=== PATIENT | male | born 1955 | race Caucasian/White ===

== ENCOUNTER 2021-02-12 15:41 | Inpatient (IN) | payer OTHER, SELFPAY ==
[2021-02-12] VITALS (9 sets, daily range): BP systolic 112–158; BP diastolic 56–94; PULSE 55–65; RESP 16–28; TEMP 36.6–36.7; O2SAT 96–97; BMI 44.8; BMI 44.0
--- NOTE | 2021-02-12 15:46 | NURSING ---
NO OLD EKGS
--- NOTE | 2021-02-12 16:06 | EKG12_ITS ---
Test Reason : CP Blood Pressure : / mmHG Vent. Rate : 059 BPM Atrial Rate : 059 BPM P-R Int : 206 ms QRS Dur : 134 ms QT Int : 404 ms P-R-T Axes : 027 -51 020 degrees QTc Int : 399 ms Sinus bradycardia Right bundle branch block Left anterior fascicular block Bifascicular block Abnormal ECG Confirmed by LUCY BOWMAN, SUSY ([id number]), purchase request editor LUDWIN TOUSSAINT ([id number]) on 02/14/2021 1:25:42 PM Referred By: CARLOS Confirmed By:SUSY AYALA MD
--- NOTE | 2021-02-12 16:07 | EDS_ITS ---
HPI <Dr. Matthias Harrison DO - Last Filed: 02/12/21 17:31> History of Present Illness Detail of Chief Complaint: Chest pain that started about 3 PM Informant: patient Onset/Context/Timing Current Severity: 07/03 Narrative Narrative: Patient presents to the emergency department with left-sided chest pain that started around 3 PM. Patient states that he was sleeping and woke him up from sleep. He felt somewhat sweaty with it. He denies any shortness of breath. He denies any trauma to his chest. He rates his pain a 4 out of 10. He describes it as a squeezing and sharp pain at the same time. Does not seem to be pleuritic. Denies recent travel or surgery. He has no heart history. He had a heart catheterization 10 years ago that was unremarkable. No family history of heart disease. Patient seems to kind of radiate into his left shoulder. Patient has history of hypertension and COPD. Prior Similar Symptoms: Yes PFSH <Dr. Matthias Harrison DO - Last Filed: 02/12/21 17:31> PFSH Medical History (Updated 02/22/21 @ 00:00 by Guerda Barrios) COPD (chronic obstructive pulmonary disease) Depression Former smoker HTN (hypertension) Sleep apnea Home Medications ipratropium-albuterol ml 02/12/21 [History Last Taken Unknown] aspirin 81 mg PO BREAKFAST #30 tab 02/14/21 [Rx Last Taken Unknown] Allergy/AdvReac Type Severity Reaction Status Date / Time Penicillins Allergy Hives Verified 02/12/21 15:44 tetracycline Allergy Hives Verified 02/12/21 15:44 Family History (Updated 02/12/21 @ 18:[address] Allan Damon DO) Other Heart disease Surgical History (Updated 02/12/21 @ 19:59 by Alise Mckee) H/O cardiac catheterization History of appendectomy History of cholecystectomy Hx of tonsillectomy Social History Smoking Status: Former smoker ROS <Dr. Matthias Harrison DO - Last Filed: 02/12/21 17:31> ROS ED Review of Systems ROS Unobtainable: other Constitutional Constitutional ED: Reports lethargy; Denies chills, fever(s), sweats or weight loss Eyes Eyes: Denies blurry vision, change in vision or diplopia ENT ENT ED: Denies rhinorrhea or sore throat Cardiovascular Cardiovascular: Reports chest pain and racing heartbeat; Denies orthopnea Respiratory/Chest Respiratory/Chest: Reports dyspnea and dyspnea on exertion; Denies cough, orthopnea or sputum Gastrointestinal Gastrointestinal: Denies abdominal pain, diarrhea, nausea or vomiting Genitourinary Genitourinary ED: Denies dysuria, hematuria or urinary frequency Musculoskeletal Musculoskeletal: Denies arthralgias, back pain, myalgias or neck pain Integumentary Denies abscess, Abrasions or rash Neurologic Neurologic: Denies headache(s) or weakness Psychiatric Psychiatric: Denies anxiety, depression or suicidal thoughts Endocrine Endocrinology: Denies polydipsia, polyphagia or polyuria Hematologic/Lymphatic Hematologic/Lymphatic: Denies easy bleeding, easy bruising or lymphadenopathy Allergic/Immunologic Allergic/Immunologic ED: Denies mouth swelling, tongue swelling or urticaria EXAM <Dr. Matthias Harrison, DO - Last Filed: 02/12/21 17:31> Physical Exam Const Vital Signs: 02/12/21 15:45 02/12/21 16:14 02/12/21 16:28 Temperature 98.0 F Temperature Source Oral Pulse Rate 57 L 60 Respiratory Rate 18 Blood Pressure 131/66 H 133/62 H Blood Pressure Mean 87 Pulse Ox 96 Oxygen Delivery Method Room Air Room Air 02/12/21 16:37 02/12/21 16:59 Temperature Temperature Source Pulse Rate 62 56 L Respiratory Rate 16 Blood Pressure 127/63 H 123/67 H Blood Pressure Mean 85 Pulse Ox 97 Oxygen Delivery Method Room Air Positive well nourished and well developed General Appearance ED: well developed and NAD HEENT Reports TM's clear and moist mucous membranes normocephalic and atraumatic; Negative for trauma or tenderness Tympanic Membrane ED: Yes TM's clear Eyes PERRL and EOMs intact bilaterally General Eye ED: Negative for pale conjunctiva or scleral icterus Neck no lymphadenopathy, supple and no JVD General: Negative for tenderness Chest Wall palpation of chest normal Chest Narrative: Patient has tenderness over the left lower ribs but seems to reproduce his pain. Chest: Negative for tenderness Resp normal respiratory effort and clear to auscultation bilaterally Effort and Inspection: Negative for respiratory distress or pain with movement Auscultation: Negative for rhonchi, wheezes or diminished lung sounds Cardio regular rate, regular rhythm, S1 normal heart sound, S2 normal heart sound and no murmurs Peripheral Pulses: pulses 2+ throughout GI normal to inspection, nondistended, normoactive bowel sounds, soft to palpation, non-tender, non-distended and no masses Back/Spine no CVA tenderness and no thoracic nor lumbar tenderness Extremity normal to inspection General Extremety ED: Negative for edema General Extremity: Negative for edema Neuro oriented x3, CN's II-XII intact bilaterally, no sensory deficits noted and gait normal Sensorium / Orientation: awake, alert, oriented to person, oriented to place and oriented to time Motor Exam: strength 5/5 throughout and strength abnormal Psych mental status grossly normal Skin no rashes or lesions noted and no wounds <Jo Ann Goel NP-C - Last Filed: 02/25/21 13:58> Physical Exam Const Vital Signs: 02/12/21 15:45 02/12/21 16:14 02/12/21 16:28 Temperature 98.0 F Temperature Source Oral Pulse Rate 57 L 60 Respiratory Rate 18 Blood Pressure 131/66 H 133/62 H Blood Pressure Mean 87 Pulse Ox 96 Oxygen Delivery Method Room Air Room Air 02/12/21 16:37 02/12/21 16:59 Temperature Temperature Source Pulse Rate 62 56 L Respiratory Rate 16 Blood Pressure 127/63 H 123/67 H Blood Pressure Mean 85 Pulse Ox 97 Oxygen Delivery Method Room Air <Dr. Matthias Harrison DO - Last Filed: 02/12/21 17:31> Heart Score History: Moderately Suspicious ECG: Nonspecific Repolarization Age: >/= 65 years Risk Factors: 1 or 2 Risk Factors Troponin: </= Normal Limit Score: 5 MDM <Dr. Matthias Harrison, - Last Filed: 02/12/21 17:31> [facility] Narrative Medical decision making narrative: IV line established on arrival. Patient received aspirin. He received 2 sublingual nitros that resolved his pain. Nitropaste placed to the anterior chest wall. Patient has a heart score of 5. Will recommend admission for further work-up and evaluation of his chest pain. Patient noted to have a leukocytosis. He tells me that he is currently on prednisone for history of COPD. No other infectious etiology noted. Lab Data Attestation: I reviewed the patient's lab results. Labs: Laboratory Results - last 24 hr 02/12/21 02/12/21 15:45 15:45 WBC 19.7 H RBC 5.13 Hgb 14.1 Hct 45.0 MCV 87.7 MCH 27.5 MCHC 31.3 L RDW Std Deviation 49.1 H RDW Coeff of Bong 15.3 H Plt Count 258 MPV 11.3 Immature Gran % (Auto) 1.500 H Neut % (Auto) 86.2 H Lymph % (Auto) 5.8 L [place] % (Auto) 6.0 Eos % (Auto) 0.3 Baso % (Auto) 0.2 Absolute Neuts (auto) 17.0 H Absolute Lymphs (auto) 1.14 Nucleated RBC % 0 Sodium 140 Potassium 4.8 Chloride 108 H Carbon Dioxide 28.0 Anion Gap 4 L BUN 22 H Creatinine 1.17 Estim Creat Clear Calc 70.19 Est GFR (MDRD) Af Amer 80 Est GFR (MDRD) Non-Af 66 BUN/Creatinine Ratio 18.8 Glucose 149 H Calcium 9.7 Troponin I High Sens 18 Radiography Chest X-Ray - ED: 1 View Diagnostic Testing: Clinical Impression(s) from Imaging Studies Chest X-Ray 02/12/21 16:41 IMPRESSION: Nonacute portable x-ray examination of the chest. Electronically Signed: David Guerrero MD (Brooks) at 17:11 EST , Service support , Echocardiogram 02/13/21 05:55 Interpretation Summary Normal LV size. Left ventricular systolic function is normal. The estimated ejection fraction is 60 %. Stage 1 diastolic dysfunction. Contrast injection was performed. Ordering Physician: Allan Damon Referring Physician: [facility] Performed By: Mar Terry, RICH, RVT 1 view chest x-ray obtained interpreted by myself as no acute disease process. EKG Initial EKG: Attestation: I personally reviewed and interpreted this EKG as follows: Comments: Sinus rhythm with a ventricular rate of 59 bpm with a right bundle branch block and left anterior fascicular block <Jo Ann Goel MARINE MACHINIST-C - Last Filed: 02/25/21 13:58> MDM Lab Data Labs: Laboratory Results - last 24 hr 02/12/21 02/12/21 15:45 15:45 WBC 19.7 H RBC 5.13 Hgb 14.1 Hct 45.0 MCV 87.7 MCH 27.5 MCHC 31.3 L RDW Std Deviation 49.1 H RDW Coeff of Bong 15.3 H Plt Count 258 MPV 11.3 Immature Gran % (Auto) 1.500 H Neut % (Auto) 86.2 H Lymph % (Auto) 5.8 L Humphreys % (Auto) 6.0 Eos % (Auto) 0.3 Baso % (Auto) 0.2 Absolute Neuts (auto) 17.0 H Absolute Lymphs (auto) 1.14 Nucleated RBC % 0 Sodium 140 Potassium 4.8 Chloride 108 H Carbon Dioxide 28.0 Anion Gap 4 L BUN 22 H Creatinine 1.17 Estim Creat Clear Calc 70.19 Est GFR (MDRD) Af Amer 80 Est GFR (MDRD) Non-Af 66 BUN/Creatinine Ratio 18.8 Glucose 149 H Calcium 9.7 Troponin I High Sens 18 Radiography Diagnostic Testing: Clinical Impression(s) from Imaging Studies Chest X-Ray 02/12/21 16:41 IMPRESSION: Nonacute portable x-ray examination of the chest. Electronically Signed: David Guerrero MD (Brooks) at 17:11 EST , Service support , Echocardiogram 02/13/21 05:55 Interpretation Summary Normal LV size. Left ventricular systolic function is normal. The estimated ejection fraction is 60 %. Stage 1 diastolic dysfunction. Contrast injection was performed. Ordering Physician: Allan Damon Referring Physician: [facility] Performed By: Mar Terry RDCS, RVT Discharge Plan Dx/Rx/DC Orders Clinical Impression: Chest pain Disposition Disposition: Acute Care Hospital [facility] Discharge Date/Time: 02/12/21 19:09 <DAVID Benjamin - Last Filed: 02/25/21 13:58> Addendum Details:: Opened in error, did not partake in any care while patient was in the ED.
[2021-02-12 16:20] LABS: Absolute Lymphocyte Count 1.14 X10^3/uL (0.83-4.51); Basophil# 0.04 X10^3/uL; Basophil% 0.2 % (0-1); Eosinophil# 0.05 X10^3/uL; Eosinophils% 0.3 % (0-5); Hemoglobin 14.1 g/dL (13.0-16.5); Lymphocyte # 1.14 X10^3/ul (0.83-4.51); Lymphocyte % 5.8 % (19-41); Mean Corp Hgb Conc 31.3 g/dL (32-36); Mean Corpuscular Hgb 27.5 pg (27.0-32.0); Mean Corpuscular Volume 87.7 fL (80-94); Mean Platelet Vol. 11.3 fl (6.2-12.0); Monocyte# 1.17 X10^3/uL; NRBC Flagged by Analyzer 0 % (0-5); Neutrophil # 16.96 X10^3/uL (2.7-7.7); Neutrophil % 86.2 % (47-70); Platelet Count 258 K/mm3 (150-450); RBC Distribution Width CV 15.3 % (11.6-14.6); RBC Distribution Width SD 49.1 fl (35.1-43.9); Red Blood Count 5.13 M/mm3 (4.6-6.2); White Blood Count 19.7 K/mm3 (4.4-11.0)
[2021-02-12] MEDS: Aspirin 81 MG TAB.CHEW 324 MG PO (16:25)
[2021-02-12] MEDS: Nitroglycerin SL (ED/IMG/CATH) 0.4 MG TABLET SL ×2 (16:28→16:37)
[2021-02-12] MEDS: 0.9% Normal Saline 1,000 ML 150 ML IV (16:28)
[2021-02-12 16:34] LABS: Anion Gap 4 (5-15); BUN 22 mg/dL (7-18); BUN/Creat Ratio 18.8 RATIO (10-20); Calcium,Total 9.7 mg/dL (8.5-10.1); Chloride 108 mmol/L (98-107); Creatinine, Serum 1.17 mg/dL (0.70-1.30); EST Glomerular Filtration Rate 66 mL/min (>60); Est Glom Filt Rate - Afr Amer 80 mL/min (>60); Estimated Creatinine Clearance 70.19 ml/min; Glucose 149 mg/dL (74-106); Potassium 4.8 mmol/L (3.5-5.1); Sodium Level 140 mmol/L (136-145); Troponin-I HS 18 pg/mL (3.0-78.0)
--- NOTE | 2021-02-12 16:41 | RAD_ITS ---
STUDY: X-RAY CHEST REASON FOR EXAM: Male, 65 years old. chest pain TECHNIQUE: AP COMPARISON: None. FINDINGS: EKG leads project over the chest. The lungs are clear and expanded. There is no demonstrated pleural abnormality. Normal size heart. Normal mediastinum and adrianna. Normal visualized pulmonary arteries. Normal visualized aortic arch and descending thoracic aorta. Normal visualized thoracic spine. Normal visualized ribs, clavicles, and shoulders. There is no demonstrated abnormality of the visualized soft tissue structures of the upper abdomen. RAD/Chest 1 View (Portable) IMPRESSION: Nonacute portable x-ray examination of the chest. Electronically Signed: David Guerrero MD (Brooks) at 17:11 EST , Service support ,
[2021-02-12] MEDS: Nitroglycerin Oint 1 INCH PACKET TD (17:32)
--- NOTE | 2021-02-12 17:51 | NURSING ---
ATTEMPTING TO CALL [facility]. PUT ON HOLD
--- NOTE | 2021-02-12 17:56 | NURSING ---
PHONE RANG AT [facility] UNTIL IT QUIT AND I GOT HANGED UP ON
--- NOTE | 2021-02-12 18:11 | NURSING ---
PCU OBS JENNIFER TOLEDO
--- NOTE | 2021-02-12 18:18 | PCM.HP.STD ---
HPI - General General Date of Admission: 02/12/21 Date of Service: 02/12/21 Chief Complaint: chest pain HPI Narrative MAY ALMAGUER, is a 65 M who presents presents with chest pain. Symptoms began at 1500 patient had left-sided chest pain went up into his left shoulder. Associated with diaphoresis and nausea. Has had this chest pain off and on and was scheduled to have a stress test done earlier but was not performed. Patient did receive nitroglycerin which alleviated his chest pain. He feels fine at this time. [facility] Medical History COPD (chronic obstructive pulmonary disease) HTN (hypertension) Home Medications Unobtainable 02/12/21 [History Last Taken Unknown] Allergy/AdvReac Type Severity Reaction Status Date / Time Penicillins Allergy Hives Verified 02/12/21 15:44 tetracycline Allergy Hives Verified 02/12/21 15:44 Family History (Updated 02/12/21 @ 18:[address] Allan Damon DO) Other Heart disease Surgical History H/O cardiac catheterization History of appendectomy Hx of tonsillectomy Social History Smoking Status: Former smoker ROS ROS Narrative Chronic LE edema. All review of systems were negative except as mentioned above in the history of present illness and the other review of systems. Vital Signs Vital Signs Vital Signs: 02/12/21 15:45 02/12/21 16:14 02/12/21 16:28 Temperature 36.7 C Temperature Source Oral Pulse Rate 57 L 60 Respiratory Rate 18 Blood Pressure 131/66 H 133/62 H Blood Pressure Mean 87 Pulse Ox 96 Oxygen Delivery Method Room Air Room Air 02/12/21 16:37 02/12/21 16:59 02/12/21 17:32 Temperature Temperature Source Pulse Rate 62 56 L 55 L Respiratory Rate 16 Blood Pressure 127/63 H 123/67 H 120/56 L Blood Pressure Mean 85 Pulse Ox 97 Oxygen Delivery Method Room Air 02/12/21 18:07 Temperature 36.6 C Temperature Source Temporal Pulse Rate 59 L Respiratory Rate 18 Blood Pressure 112/94 H Blood Pressure Mean 100 Pulse Ox 96 Oxygen Delivery Method Room Air Weight Weight: 154 kg Body Mass Index (BMI) 44.8 Physical Exam Const alert General Appearance: cooperative HEENT normocephalic Resp normal respiratory effort, no retractions, no use of accessory muscles and clear to auscultation bilaterally Cardio regular rate, regular rhythm, S1 normal heart sound and S2 normal heart sound GI normal to inspection, nondistended, normoactive bowel sounds, soft to palpation, non-tender and non-distended Extremity normal to inspection Results Lab / Micro Data Attestation: I reviewed the patient's lab results. Result Diagrams: 02/12/21 15:45 02/12/21 15:45 Labs: Laboratory Results - last 24 hr 02/12/21 15:45: WBC 19.7 H, RBC 5.13, Hgb 14.1, Hct 45.0, MCV 87.7, MCH 27.5, MCHC 31.3 L, RDW Std Deviation 49.1 H, RDW Coeff of Bong 15.3 H, Plt Count 258, MPV 11.3, Immature Gran % (Auto) 1.500 H, Neut % (Auto) 86.2 H, Lymph % (Auto) 5.8 L, [place] % (Auto) 6.0, Eos % (Auto) 0.3, Baso % (Auto) 0.2, Absolute Neuts (auto) 17.0 H, Absolute Lymphs (auto) 1.14, Nucleated RBC % 0 02/12/21 15:45: Sodium 140, Potassium 4.8, Chloride 108 H, Carbon Dioxide 28.0, Anion Gap 4 L, BUN 22 H, Creatinine 1.17, Estim Creat Clear Calc 70.19, Est GFR (MDRD) Af Amer 80, Est GFR (MDRD) Non-Af 66, BUN/Creatinine Ratio 18.8, Glucose 149 H, Calcium 9.7, Troponin I High Sens 18 EKG Initial EKG: Attestation: I personally reviewed and interpreted this EKG as follows: Prior EKG tracings: available for review EKG Rhythm Intrepretation: Sinus Rhythm (RBBB. no acute change. ) Radiology Impression Chest X-Ray 02/12/21 16:41 IMPRESSION: Nonacute portable x-ray examination of the chest. Electronically Signed: David Guerrero MD (Brooks) at 17:11 EST , Service support , Assessment & Plan Assessment/Plan (1) Unstable angina: PLAN: 1. Unstable angina Heart score of 5 Received ASA and NTG in ED cycle troponins check lipid panel chemical stress test 02/14 2. COPD stable PRN albuterol 3. LE edema may be due to pulmonary HTN check echo 4. VTE prophylaxis: not indicated given obs status. Charges/Coding Visit Charges OBSV E&M: 25463 Initial observation care L2
--- NOTE | 2021-02-12 18:23 | NURSING ---
CALLED [facility], TALKED TO LUIS. HE WAS GOING TO TAKE [facility] ER PHONE NUMBER TO HER AND HAVE HER CALL ER BACK.
--- NOTE | 2021-02-12 18:54 | NURSING ---
[facility] CALL[facility] AND I TALKED TO PATRICK AND GAVE HER ALL THE PATIENTS INFO. SHE INFORMED ME THEY ARE TIGHT ON BEDS BUT WILL ASSIGN A COORDINATOR TO THE PATIENT. SHE SAID WE MAY ADMIT IF THAT IS WHAT'S IN BEST INTEREST FOR THE PATIENT.
--- NOTE | 2021-02-12 19:14 | EKG12_ITS ---
Test Reason : DYSRHYTHMIA Blood Pressure : / mmHG Vent. Rate : 052 BPM Atrial Rate : 058 BPM P-R Int : 000 ms QRS Dur : 142 ms QT Int : 420 ms P-R-T Axes : 014 -50 007 degrees QTc Int : 390 ms Sinus bradycardia with 2nd degree A-V block (Mobitz I) Right bundle branch block Left anterior fascicular block Bifascicular block Abnormal ECG When compared with ECG of 12-FEB-2021 19:41, MANUAL COMPARISON REQUIRED, DATA IS UNCONFIRMED Confirmed by LUCY BOWMAN, SUSY ([id number]), fan mail editor LUDWIN TOUSSAINT ([id number]) on 02/15/2021 1:54:21 PM Referred By: TRE Confirmed By:SUSY AYALA MD
--- NOTE | 2021-02-12 19:53 | NURSING ---
RN attempted to call patient's [facility] at [phone] to get home medication list but no on answered the phone. Will attempt again.
--- NOTE | 2021-02-12 19:58 | PCS.PANDOC ---
PANDEMIC DOCUMENTATION INITIATED: Date: 11/08/2020 Time: 190
[2021-02-12 20:04] LABS: Troponin-I HS 14 pg/mL (3.0-78.0)
--- NOTE | 2021-02-12 20:12 | NURSING ---
RN ATTEMPTED TO CALL ALF FOR MEDICATIONS PATIENT IS TAKING, NO ANSWER
[2021-02-12 22:09] LABS: Troponin-I HS 14 pg/mL (3.0-78.0)
[2021-02-12] MEDS: Albuterol 2.5 MG/3 ML VIAL.NEB. INHALATION (22:48)
[2021-02-13] VITALS (10 sets, daily range): BP systolic 143–172; BP diastolic 88–98; PULSE 60–88; RESP 16–20; TEMP 36.2–36.7; O2SAT 92–96
[2021-02-13] MEDS: Albuterol 2.5 MG/3 ML VIAL.NEB. INHALATION ×3 (03:21→21:46)
--- NOTE | 2021-02-13 04:30 | EKG12_ITS ---
Test Reason : CP ADMIT Blood Pressure : / mmHG Vent. Rate : 057 BPM Atrial Rate : 057 BPM P-R Int : 222 ms QRS Dur : 126 ms QT Int : 398 ms P-R-T Axes : 025 -49 003 degrees QTc Int : 387 ms Sinus bradycardia with 1st degree A-V block Right bundle branch block Left anterior fascicular block Bifascicular block Abnormal ECG Confirmed by LUCY BOWMAN, SUSY ([id number]), order editor LUDWIN TOUSSAINT ([id number]) on 02/15/2021 1:55:37 PM Referred By: TRE Confirmed By:SUSY AYALA MD
--- NOTE | 2021-02-13 05:55 | ECHOCS_ITS ---
Reason For Study: Edema Procedure This was a 2D Doppler, Color Flow transthoracic echocardiogram. Contrast injection was performed. The study was technically difficult. Exam performed in department. Left Ventricle Normal LV size. Left ventricular systolic function is normal. The estimated ejection fraction is 60 %. Stage 1 diastolic dysfunction. Right Ventricle Normal RV size. Normal systolic function. Atria Normal left atrium. Normal right atrium. Mitral Valve Normal mitral valve. Tricuspid Valve Normal tricuspid valve. Aortic Valve The aortic valve is not well visualized. Mild focal aortic valve calcification. Pulmonic Valve Normal pulmonic valve. Great Vessels Normal aortic root. The pulmonary artery is normal size. Normal inferior vena cava. Pericardium/Pleural No pericardial effusion. Medication Diluted definity 2ml given slow IV push to enhance endocardial definition. MMode/2D Measurements & Calculations LVIDd: 5.6 cm IVSd: 1.5 cm Ao root diam: 3.6 cm LVIDs: 3.0 cm LVPWd: 1.5 cm RVDd: 4.2 cm FS: 46.8 % LAV(MOD-bp): 43.5 ml LVAd ap4: 19.9 cm2 SV(MOD-sp4): 34.3 ml LAV(MOD-bp) Indexed: 16.3 ml/m2 LVLd ap4: 6.4 cm LAV(MOD-sp2): 22.3 ml EDV(MOD-sp4): 50.3 ml LAV(MOD-sp4): 62.0 ml EDV(sp4-el): 52.8 ml LVAs ap4: 10.0 cm2 LVLs ap4: 5.2 cm ESV(MOD-sp4): 16.0 ml ESV(sp4-el): 16.4 ml EF(MOD-sp4): 68.2 % EF(sp4-el): 68.9 % SV(sp4-el): 36.3 ml LA A4 area: 21.7 cm2 LA dimension(2D): 4.1 cm RA A4 area: 14.9 cm2 Doppler Measurements & Calculations MV E max juancho: 78.4 cm/sec Lat Peak E' Juancho: 5.6 cm/sec Med Peak E' Juancho: 5.8 cm/sec MV A max juancho: 103.5 cm/sec E/E' lat: 14.0 E/E' med: 13.5 MV E/A: 0.76 MV V2 max: 115.6 cm/sec Ao V2 max: 226.2 cm/sec LV V1 max: 131.5 cm/sec MV max P.3 mmHg Ao max P.5 mmHg LV V1 max P.9 mmHg MV V2 mean: 75.2 cm/sec Ao V2 mean: 145.8 cm/sec LV V1 mean P.9 mmHg MV mean P.4 mmHg Ao mean P.9 mmHg LV V1 mean: 93.2 cm/sec MV V2 VTI: 24.8 cm Ao V2 VTI: 30.9 cm LV V1 VTI: 18.8 cm PA V2 max: 110.0 cm/sec ECHO/Echo Complete W/ Contrast Interpretation Summary Normal LV size. Left ventricular systolic function is normal. The estimated ejection fraction is 60 %. Stage 1 diastolic dysfunction. Contrast injection was performed. Ordering Physician: Allan Damon Referring Physician: [facility] Performed By: Mar Terry, RICH, RVT
[2021-02-13 06:52] LABS: Absolute Lymphocyte Count 2.52 X10^3/uL (0.83-4.51); Absolute Neutrophil Count 12.5 X10^3/uL (2.0-7.7); Basophil# 0.06 X10^3/uL; Basophil% 0.4 % (0-1); Eosinophil# 0.19 X10^3/uL; Eosinophils% 1.1 % (0-5); Hematocrit 42.9 % (40-54); Hemoglobin 13.3 g/dL (13.0-16.5); Lymphocyte # 2.52 X10^3/ul (0.83-4.51); Lymphocyte % 15.2 % (19-41); Mean Corpuscular Hgb 27.4 pg (27.0-32.0); Mean Corpuscular Volume 88.5 fL (80-94); Mean Platelet Vol. 10.8 fl (6.2-12.0); Monocyte# 1.11 X10^3/uL; Monocyte% 6.7 % (0-10); NRBC Flagged by Analyzer 0 % (0-5); Neutrophil # 12.45 X10^3/uL (2.7-7.7); Neutrophil % 74.9 % (47-70); Platelet Count 216 K/mm3 (150-450); RBC Distribution Width CV 15.3 % (11.6-14.6); RBC Distribution Width SD 49.6 fl (35.1-43.9); Red Blood Count 4.85 M/mm3 (4.6-6.2); White Blood Count 16.6 K/mm3 (4.4-11.0)
[2021-02-13 07:18] LABS: Hemoglobin A1c 6.2 % (3.8-5.6)
[2021-02-13 07:24] LABS: Cholesterol 126 mg/dL (200); High Density Lipoprotein 65 mg/dL; Triglycerides 101 mg/dL; Very Low Density Lipoprotein 20 mg/dL (5-40)
[2021-02-13] MEDS: Aspirin E.C. 81 MG Tablet PO (08:32)
[2021-02-13 11:20] LABS: Bedside Glucose 105 mg/dL (70-110)
--- NOTE | 2021-02-13 14:25 | PN.HOSP_ITS ---
Subjective Subjective No further chest pain. Objective Data Objective Data Vital Signs: Vital Signs Temp Pulse Resp BP Pulse Ox 36.7 C 77 18 172/93 H 92 02/13/21 14:23 02/13/21 14:23 02/13/21 14:23 02/13/21 14:23 02/13/21 14:23 Oxygen Delivery Method Room Air Weight: 151.4 kg Body Mass Index (BMI) 44.0 Intake & Output: Intake and Output for Last 24 Hours 02/11/21 02/12/21 02/13/21 23:59 23:59 23:59 Intake Total 725 / 725 240 / 240 Output Total 400 / 400 550 / 550 Balance 325 / 325 -310 / -310 Lab / Micro Data Result Diagrams: 02/13/21 06:28 02/12/21 15:45 Labs: Laboratory Results - last 24 hr 02/12/21 15:45: WBC 19.7 H, RBC 5.13, Hgb 14.1, Hct 45.0, MCV 87.7, MCH 27.5, MCHC 31.3 L, RDW Std Deviation 49.1 H, RDW Coeff of Bong 15.3 H, Plt Count 258, MPV 11.3, Immature Gran % (Auto) 1.500 H, Neut % (Auto) 86.2 H, Lymph % (Auto) 5.8 L, [place] % (Auto) 6.0, Eos % (Auto) 0.3, Baso % (Auto) 0.2, Absolute Neuts (auto) 17.0 H, Absolute Lymphs (auto) 1.14, Nucleated RBC % 0 02/12/21 15:45: Sodium 140, Potassium 4.8, Chloride 108 H, Carbon Dioxide 28.0, Anion Gap 4 L, BUN 22 H, Creatinine 1.17, Estim Creat Clear Calc 70.19, Est GFR (MDRD) Af Amer 80, Est GFR (MDRD) Non-Af 66, BUN/Creatinine Ratio 18.8, Glucose 149 H, Calcium 9.7, Troponin I High Sens 18 02/12/21 19:30: Troponin I High Sens 14 02/12/21 21:25: Troponin I High Sens 14 02/13/21 06:28: WBC 16.6 H, RBC 4.85, Hgb 13.3, Hct 42.9, MCV 88.5, MCH 27.4, MCHC 31.0 L, RDW Std Deviation 49.6 H, RDW Coeff of Bong 15.3 H, Plt Count 216, MPV 10.8, Immature Gran % (Auto) 1.700 H, Neut % (Auto) 74.9 H, Lymph % (Auto) 15.2 L, [place] % (Auto) 6.7, Eos % (Auto) 1.1, Baso % (Auto) 0.4, Absolute Neuts (auto) 12.5 H, Absolute Lymphs (auto) 2.52, Nucleated RBC % 0 02/13/21 06:28: Triglycerides 101, Cholesterol 126, LDL Cholesterol 41, VLDL Cholesterol 20, HDL Cholesterol 65, TSH 1.60 02/13/21 06:28: Hemoglobin A1c 6.2 H 02/13/21 11:07: POC Glucose 105 Radiography Diagnostic Testing: Radiology Impression Chest X-Ray 02/12/21 16:41 IMPRESSION: Nonacute portable x-ray examination of the chest. Electronically Signed: David Guerrero MD (Brooks) at 17:11 EST , Service support , Physical Exam Const alert Exam Limitations: no limitations Resp normal respiratory effort, no retractions, no use of accessory muscles and clear to auscultation bilaterally Cardio regular rate, regular rhythm, S1 normal heart sound and S2 normal heart sound GI normal to inspection, nondistended, normoactive bowel sounds, soft to palpation, non-tender and non-distended Assessment & Plan Assessment/Plan (1) Unstable angina: PLAN: 1. Unstable angina * Heart score of 5 * Received ASA and NTG in ED * cycle troponins * check lipid panel * chemical stress test 02/14 2. COPD * stable * PRN albuterol 3. LE edema * may be due to pulmonary HTN * check echo 4. VTE prophylaxis: not indicated given obs status. Charges/Coding Visit Charges OBSV E&M: 99463 Subsequent observation care L2
[2021-02-13 16:35] LABS: Bedside Glucose 120 mg/dL (70-110)
[2021-02-14 02:50] VITALS: BP 152/60; PULSE 79; RESP 18; TEMP 36.6; O2SAT 95
[2021-02-14 03:42] VITALS: PULSE 59
--- NOTE | 2021-02-14 05:00 | EKG12_ITS ---
Test Reason : AM EKG Blood Pressure : / mmHG Vent. Rate : 084 BPM Atrial Rate : 084 BPM P-R Int : 218 ms QRS Dur : 128 ms QT Int : 376 ms P-R-T Axes : 068 -64 037 degrees QTc Int : 444 ms Sinus rhythm with 1st degree A-V block Right bundle branch block Left anterior fascicular block Bifascicular block Abnormal ECG Confirmed by LUCY BOWMAN, SUSY ([id number]), car conditioner LUDWIN TOUSSAINT ([id number]) on 02/16/2021 2:02:35 PM Referred By: TRE Confirmed By:SUSY AYALA MD
[2021-02-14] MEDS: Albuterol 2.5 MG/3 ML VIAL.NEB. INHALATION ×2 (05:26→11:49)
[2021-02-14 05:27] VITALS: PULSE 93; RESP 18
[2021-02-14] MEDS: Aspirin E.C. 81 MG Tablet PO (06:20)
[2021-02-14] MEDS: 0.9% Saline Lock 10 ML Syringe IV (06:26)
[2021-02-14 06:30] LABS: Bedside Glucose 95 mg/dL (70-110)
[2021-02-14 06:57] VITALS: PULSE 88
--- NOTE | 2021-02-14 09:36 | CASEMGMT ---
JAMIL called [facility], where patient is listed as being from. JAMIL was able to find out that this is a pen[facility]entiary. The individual on the phone gave me the name and number of the assistant manager pt. Amy Ansari [phone]. This is who JAMIL will need to talk with about patient returning. JAMIL called the number and left a message requesting a return call. Bella Boogie [employer] [facility]
--- NOTE | 2021-02-14 09:54 | CASEMGMT ---
JAMIL received a call from Amy Ansari with [facility]. Amy said they are a prison. Patient would need to be independent with all activities. Amy gave JAMIL the after hours number as she is often in and out of the office. After hours number is [phone] and the fax number is [phone]. Patient has a correctional case manager, Joyce Lee that he works with from the [place]. Amy will call Joyce and let her know patient is in the hospital she will also give Joyce NEGRON's name and number. Bella Boogie PADDOCK JUDGE PENELOPE
--- NOTE | 2021-02-14 11:27 | STRESSREP_ITS ---
Stress Test Report Pharmacologic myocardial perfusion stress test. 65-year-old man with a history of chest pain. Stress protocol: Resting EKG demonstrates normal sinus rhythm with a rate of 86 bpm and right bundle branch block is noted resting blood pressure is 122/70 mmHg. 0.4 mg of regadenoson was infused per usual protocol followed by rapid intravenous saline infusion. At rest there were no ST or T wave changes noted suggest abnormal flow reserve and at peak infusion nonspecific ST changes were noted with did not meet the criteria for ischemia. No clinical angina was noted. The peak blood pressure was 140/60 mmHg. Myocardial perfusion protocol. 14.9 mCi of technetium 99m sestamibi was injected at rest. 0.4 mg of regadenoson was infused per usual protocol. At peak infusion 44.8 mCi of technetium 99m sestamibi was injected stress images were obtained stress and rest images were reconstructed and compared in the short axis vertical long hor izontal long axis. Gated images were also obtained for Perfusion SPECT analysis: Review of the stress images demonstrate normal uptake of tracer noted in all areas of the myocardium. The resting images similarly demonstrate normal uptake of tracer noted in all areas of the myocardium. No areas of reversibility are noted suggest ischemia. No previous infarct is noted. Gated SPECT analysis: The gated ejection fraction is 74%. Conclusion: Normal pharmacologic myocardial perfusion stress test. Preserved ejection fraction.
[2021-02-14 11:31] VITALS: BP 152/78; PULSE 99; RESP 20; TEMP 36.6; O2SAT 92
[2021-02-14 11:49] VITALS: PULSE 89; RESP 20
--- NOTE | 2021-02-14 11:56 | CASEMGMT ---
SW met with patient. Introduced self and role at [facility]. Patient stated he will need transportation arranged to get back to the senior living. SW asked if he could go by wheelchair van and he can. SW told him this would not be covered by insurance. SW asked if he would be able to pay a bill if it were around $100 and patient said he could afford this. Await d/c orders. Bella Boogie COMMODITY MANAGEMENT SPECIALIST PENELOPE
[2021-02-14 12:20] LABS: Bedside Glucose 131 mg/dL (70-110)
--- NOTE | 2021-02-14 12:38 | PCM.DC ---
Discharge Instructions Diet Discharge Diet: Low fat / Low cholesterol Activity Discharge Activity: Return to Normal Activity Dressing / Incision Call your doctor if you observe: Fever of 101 or Higher, Shortness of breath, Dizziness, Fainting spells, Swelling in the ankles, Chest pain and Increased palpitations (irregular heartbeat) Follow Up Care Test Results: Test results from this visit will be discussed in further detail at your follow-up appointment, if applicable. Discharge Plan Admission Admit Date/Time: 02/13/21 11:34 Attending Provider: Frnak Garcia Primary Care Provider: [facility] Discharge Orders/Prescriptions Prescriptions: New aspirin 81 mg Tablet,Delayed Release (Dr/Ec) 81 mg PO BREAKFAST Qty: 30 RF: 0 Continued ipratropium-albuterol 0.5 mg-3 mg(2.5 mg base)/3 mL solution for nebulization RF: 0 Referrals / Follow Up: [facility] Doctor,Out of [NON-STAFF] - Within 1 Week [facility] [Primary Care Provider] - Within 1 Week Disposition Disposition (needs filled in before D/C Order can be placed): Home, Self Care
--- NOTE | 2021-02-14 12:42 | DS.PCM_ITS ---
Providers Date of Admission: 02/13/21 Primary Care Physician: [facility] Reason For Visit: UNSTABLE ANGINA Diagnosis Discharge Diagnosis (1) Unstable angina: Status: Acute Code(s): I20.0 - Unstable angina Medications at Discharge Home Medications ipratropium-albuterol ml 02/12/21 aspirin 81 mg PO BREAKFAST #30 tab 02/14/21 Hospital Course Operations None Procedures 2-D Echocardiogram and Nuclear stress test Summary of Care Provided Minutes Spent on Discharge: 40 Hospital Course: Per HPI: MAY ALMAGUER, is a 65 M who presents presents with chest pain. Symptoms began at 1500 patient had left-sided chest pain went up into his left shoulder. Associated with diaphoresis and nausea. Has had this chest pain off and on and was scheduled to have a stress test done earlier but was not performed. Patient did receive nitroglycerin which alleviated his chest pain. He feels fine at this time. Hospital Course: 1. Chest pain rule out/COPD: 65-year-old male who presented to the hospital wit h chest pain. This started around 3:00 on the day of admission and were left- sided and went up to his left shoulder. He states that he has resolution of his chest pain now. Echo and stress test were unremarkable for any type of ischemia. In further discussion with him, he states that he does have a history of COPD and has been coughing fairly frequently and producing mucus. He denies any fevers or chills at home but he did notice that he could reproduce some of the chest pain with pushing on his left chest but states that the pain has completely resolved now. I do recommend that he continue with his duo nebs at home and will start him on p.o. aspirin as well secondary to his chest pain presentation. I do recommend that he follow-up with his PCP as an outpatient secondary to his COPD as well as this chest pain that has resolved. I discussed with him the plan for discharge today and he expressed understanding of the risk and benefits of going home and would like to go home today. Physical Exam Const alert, oriented x3 and no apparent distress General Appearance: cooperative HEENT normocephalic and moist oral mucous membranes Eyes PERRL, EOMs intact bilaterally and conjunctivae normal Neck supple and no JVD Resp normal respiratory effort, no retractions, no use of accessory muscles and clear to auscultation bilaterally Resp Narrative: Auscultation: diminished lung sounds; Negative for crackles, rales, rhonchi or wheezes Cardio regular rate, regular rhythm, S1 normal heart sound, S2 normal heart sound and no murmurs GI soft to palpation, non-tender and non-distended; Negative for hepatosplenomegaly Extremity no clubbing, cyanosis or edema Skin no rashes or lesions noted Neuro no focal motor deficits and no sensory deficits noted Psych affect normal Appearance: appropriate Weight / BMI Weight Weight: 333 lb 12.478 oz Body Mass Index (BMI) 44.0 ABG / Lab / Microbiology Data Result Diagrams: 02/13/21 06:28 02/12/21 15:45 Laboratory: Laboratory Results - last 24 hr 02/13/21 16:19: POC Glucose 120 H 02/14/21 06:19: POC Glucose 95 02/14/21 11:28: POC Glucose 131 H Radiography Diagnostic Testing: Radiology Impression Echocardiogram 02/13/21 05:55 Interpretation Summary Normal LV size. Left ventricular systolic function is normal. The estimated ejection fraction is 60 %. Stage 1 diastolic dysfunction. Contrast injection was performed. Ordering Physician: Allan Damon Referring Physician: [facility] Performed By: Mar Terry, RICH, RVT D/C Instructions Discharge Diet: Low fat / Low cholesterol Call your doctor if you observe: Fever of 101 or Higher, Shortness of breath, Dizziness, Fainting spells, Swelling in the ankles, Chest pain and Increased palpitations (irregular heartbeat) Meaningful Use Info Meaningful Use Diagnoses (Choose all that apply): None applicable Discharge Plan Admission Admit Date/Time: 02/13/21 11:34 Attending Provider: Frank Garcia Primary Care Provider: [facility] Discharge Orders/Prescriptions Prescriptions: New aspirin 81 mg Tablet,Delayed Release (Dr/Ec) 81 mg PO BREAKFAST Qty: 30 RF: 0 Continued ipratropium-albuterol 0.5 mg-3 mg(2.5 mg base)/3 mL solution for nebulization RF: 0 Referrals / Follow Up: [facility] Doctor,Out of [NON-STAFF] - Within 1 Week [facility] [Primary Care Provider] - Within 1 Week Disposition Disposition (needs filled in before D/C Order can be placed): Home, Self Care Charges/Coding Visit Charges Inpatient E&M: 51810 Disch Hosp
--- NOTE | 2021-02-14 13:18 | CASEMGMT ---
JAMIL arranged for patient to get picked up 1330 via [employer] van. JAMIL notified RN and typing secretary. JAMIL also faxed d/c instructions to [facility] and wrote on fax face sheet garbage pick up man time. JAMIL also called Amy at [facility] and let her know. Plan: d/c back to [facility] custodial. [facility] transported via van. Bella NEGRETE
--- NOTE | 2021-02-14 13:45 | CHAPLAIN ---
Type of Pastoral Visit _x__ Initial Visit ___ Follow-up Visit ___ On-call Visit ___ General Patient Visit ___ Spiritual Assessment ___ Family Conference ___ Bereavement ___ Rapid Response ___ Code Blue ___ Other (describe below) Pastoral Care Referral From x Patient ___ Family ___ Nurse ___ Physician ___ Sql Database Administrator ___ Bicycle Mechanic ___ Other (describe below) Sacrament/Intervention _x__ Active listening ___ Anointing ___ Gnosticist ___ Bereavement ___ Communion ___ Elizabeth exploration ___ ___ Life review _x__ Prayer ___ Reconciliation ___ Sacrament of Sick _x__ Supportive presence ___ Wedding ___ Other (describe below) Pastoral Comments patient is ready for discharge; pt is concerned about lack of answers for his medical condition but states that I have to trust God and wait on Him; pt requests prayer support
--- NOTE | 2021-02-14 14:11 | PHA.DC.MC ---
Pharmacy Service has performed discharge medication reconciliation and counseling for this patient. 1. ASPIRIN 81 MG PO BREAKFAST The patient's discharge medication list was reviewed for discrepancies and discrepancies were resolved. Home Medications ipratropium-albuterol ml 02/12/21 aspirin 81 mg PO BREAKFAST #30 tab 02/14/21 The patient was counseled on the following discharge medications and changes in medications for homegoing were reviewed. The Reason for Use, instructions for use, and potential side effects were reviewed for all new medications. The patient's questions regarding all of their medications were answered. The patient was able to verbally demonstrate an understanding of their discharge medications.
== END 2021-02-14 14:29 | disposition home or self-care (01) | DRG 311 ==
LOC: ED 18:07 → PCU 18:45
PROVIDERS: Emergency Provider Emergency Medicine; Visit Provider Family Medicine
DX: I20.0 Unstable angina (principal); I27.20 Pulmonary hypertension, unspecified; J44.9 Chronic obstructive pulmonary disease, unspecified; I10 Essential (primary) hypertension; Z87.891 Personal history of nicotine dependence
CPT/HCPCS: 36415; 71045; 78452; 80048; 80061; 82962; 83036; 84443; 84484; 85025; 93005; 93017; 93306; 94640; 99285; A9500; J7030; Q9957; A4216; C8929; J2785